=== PATIENT | male | born 1940 ===

== ENCOUNTER 2018-01-08 12:43 | Inpatient (IN) | payer OTHER, MEDICARE ==
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
[2018-01-08 13:29] LABS: BASO # 0.02 K/mm3 (0.0-2.0); BASO % 0.3 % (0.0-3.0); EOS # 0.5 (0.0-0.7); EOS % 8.9 % (1.5-5.0); GRAN # 3.17 (1.4-6.5); GRAN % 53.2 % (50.0-68.0); HEMOGLOBIN 10.3 g/dL (14.0-18.0); LYMPH # 1.9 (1.2-3.4); LYMPH % 31.7 % (22.0-35.0); MEAN CORPUSCULAR HEMOGLOBIN 32.1 pg (25.0-35.0); MEAN CORPUSCULAR HGB CONC 33.4 g/dl (31.0-37.0); MEAN PLATELET VOLUME 9.4 fl (7.0-11.0); MONO # 0.4 (0.1-0.6); MONO % 5.9 % (1.0-6.0); RBC 3.21 10^6/uL (3.5-6.1); RED CELL DISTRIBUTION WIDTH 12.1 % (11.5-14.5)
[2018-01-08 13:30] VITALS: BMI 25.3
[2018-01-08 13:37] LABS: ALB/GLOB RATIO 1.5 (1.1-1.8); ALBUMIN 4.1 g/dL (3.0-4.8); ALT/SGPT 24 U/L (7-56); AST/SGOT 29 U/L (17-59); BLOOD UREA NITROGEN 56 mg/dL (7-21); CALCIUM 9.3 mg/dL (8.4-10.5); GFR AFRICAN-AMERICAN 20; GFR NON-AFRICAN AMERICAN 16; HDL CHOLESTEROL 32 mg/dL (29-60); INR 1.12 (0.93-1.08); PARTIAL THROMBOPLASTIN TIME 31.9 Seconds (25.1-36.5); PROTHROMBIN TIME 12.9 SECONDS (9.4-12.5)
--- NOTE | 2018-01-08 13:41 | CT ---
PROCEDURE: CT HEAD WITHOUT CONTRAST. HISTORY: Code Stroke COMPARISON: None available. TECHNIQUE: Axial computed tomography images were obtained through the head/brain without intravenous contrast. Radiation dose: Total exam DLP = 958 mGy-cm. This CT exam was performed using one or more of the following dose reduction techniques: Automated exposure control, adjustment of the mA and/or kV according to patient size, and/or use of iterative reconstruction technique. FINDINGS: HEMORRHAGE: No intracranial hemorrhage. BRAIN: No mass effect or edema. Chronic microvascular changes are seen in the periventricular white matter. There is mild atrophy. VENTRICLES: Unremarkable. No hydrocephalus. CALVARIUM: Unremarkable. PARANASAL SINUSES: Unremarkable as visualized. No significant inflammatory changes. MASTOID AIR CELLS: Unremarkable as visualized. No inflammatory changes. OTHER FINDINGS: None. IMPRESSION: No acute intracranial findings
[2018-01-08 13:48] LABS: LDL CHOLESTEROL 42 mg/dL (0-129)
[2018-01-08] MEDS: Sodium Chloride 0.9% 1,000 ML IV SCH ×3 (13:52→23:30)
--- NOTE | 2018-01-08 13:55 | RAD ---
HISTORY: Code Stroke COMPARISON: No prior. FINDINGS: LUNGS: No active pulmonary disease. PLEURA: No significant pleural effusion identified, no pneumothorax apparent. CARDIOVASCULAR: Normal. OSSEOUS STRUCTURES: Sternal wires VISUALIZED UPPER ABDOMEN: Normal. OTHER FINDINGS: None. IMPRESSION: No active disease.
[2018-01-08 14:09] LABS: TROPONIN I < 0.01 ng/mL
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
[2018-01-08 15:40] LABS: ARTERIAL BLOOD GAS HEMOGLOBIN 9.4 g/dL (11.7-17.4); ARTERIAL BLOOD GAS O2 CAPACITY 12.9 mL/dl (16-24); ARTERIAL BLOOD GAS O2 CONTENT 12.8 ML/dl (15-23); ARTERIAL BLOOD GAS O2 SAT 99.2 % (95-98); ARTERIAL BLOOD GAS PCO2 46 mm/Hg (35-45); ARTERIAL BLOOD GAS PH 7.36 (7.35-7.45); ARTERIAL BLOOD GAS TCO2 27.4 mmol.L (22-28)
[2018-01-08 16:53] LABS: BARBITURATES, UR NEGATIVE (NEGATIVE); BENZODIAZEPINES, UR POSITIVE (NEGATIVE); OPIATES, UR NEGATIVE (NEGATIVE); PHENCYCLIDINE, UR NEGATIVE (NEGATIVE)
--- NOTE | 2018-01-08 18:48 | CARD ---
APPROVED REPORT EKG Measurement Heart [id number] <Conclusion> Sinus bradycardia Left axis deviation Right bundle branch block Abnormal ECG
[2018-01-08 19:51] LABS: TROPONIN I < 0.01 ng/mL
[2018-01-08 19:56] LABS: B-TYPE NATRIURETIC PEPTIDE 317 pg/mL (0-450)
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
[2018-01-08 20:24] LABS: CK-MB 1.7 ng/mL (0.0-3.6)
[2018-01-08] MEDS ORDERED: Iohexol 240 (50 ml) ONE (20:25)
[2018-01-08 20:28] LABS: IRON 106 ug/dL (45-180)
[2018-01-08 20:37] LABS: % IRON SATURATION 34 % (20-55); TOTAL IRON BINDING CAPACITY 312 ug/dL (261-462)
[2018-01-08 20:48] LABS: FREE T4 1.45 ng/dL (0.78-2.19)
[2018-01-08 21:07] LABS: PH,URINE 6.5 (4.7-8.0); URINE BILIRUBIN NEGATIVE (NEGATIVE); URINE BLOOD TRACE-INTACT (NEGATIVE); URINE GLUCOSE (UA) 100 mg/dL (NEGATIVE); URINE LEUKOCYTE ESTERASE NEGATIVE Leu/uL (NEGATIVE); URINE PROTEIN TRACE mg/dL (<30 mg/dL); URINE UROBILINOGEN 0.2 E.U./dL (<1 E.U./dL)
[2018-01-08 21:14] LABS: URINE APPEARANCE CLEAR (CLEAR); URINE COLOR YELLOW (YELLOW)
[2018-01-08 21:21] LABS: URINE EPITHELIAL CELLS 0 - 2 /hpf (0-5); URINE HYALINE CAST 0 - 2 /hpf; URINE WBC 0 - 2 /hpf (0-6)
[2018-01-08] MEDS: Insulin Reg-LOW-Coverage SC SCH (21:39)
--- NOTE | 2018-01-08 22:24 | US ---
EXAM: US Retroperitoneal Limited, Renal EXAM DATE/TIME: 01/08/2018 7:53 PM CLINICAL HISTORY: 77 years old, male; Abnormal findings; Abnormal lab test; Abnormal kidney function lab tests; Additional info: Kehinde TECHNIQUE: Real-time ultrasound of the retroperitoneum (limited) with image documentation. COMPARISON: There are no prior studies for comparison. FINDINGS: Right kidney: Right kidney measures approximately 8.6 x 4.4 cm. there is a 1.3 x 1 cm right renal cyst there is a 2.7 x 2.6 cm cyst. There is increase in cortical echogenicity. Corticomedullary differentiation is visualized. There is no pelvocaliectasis. Left kidney: Left kidney measures approximately 9 x 5.7 centimeters. There is a 1.6 x 1.1 cm left renal cyst. There is increased cortical echogenicity. Corticomedullary differentiation is visualized. There is no pelvocaliectasis. IMPRESSION: Increased cortical echogenicity suggests medical renal disease; mild atrophy, no hydronephrosis
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
[2018-01-09] MEDS: Sodium Chloride 0.9% 1,000 ML IV SCH (05:43)
[2018-01-09] MEDS: Insulin Reg-LOW-Coverage SC SCH ×4 (07:30→21:47)
[2018-01-09 07:40] LABS: ALB/GLOB RATIO 1.4 (1.1-1.8); ALBUMIN 3.9 g/dL (3.0-4.8); CALCIUM 9.2 mg/dL (8.4-10.5)
[2018-01-09 08:00] LABS: BASO # 0.03 K/mm3 (0.0-2.0); BASO % 0.5 % (0.0-3.0); EOS # 0.6 (0.0-0.7); GRAN # 3.24 (1.4-6.5); GRAN % 56.7 % (50.0-68.0); HEMOGLOBIN 10.9 g/dL (14.0-18.0); LYMPH # 1.4 (1.2-3.4); MEAN CELL VOLUME 95.6 fl (80.0-105.0); MEAN CORPUSCULAR HGB CONC 33.4 g/dl (31.0-37.0); MEAN PLATELET VOLUME 10.4 fl (7.0-11.0); MONO # 0.5 (0.1-0.6); MONO % 8.8 % (1.0-6.0); RBC 3.41 10^6/uL (3.5-6.1); RED CELL DISTRIBUTION WIDTH 12.1 % (11.5-14.5); WHITE BLOOD COUNT 5.7 10^3/ul (4.5-11.0)
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
--- NOTE | 2018-01-09 09:47 | MRI ---
PROCEDURE: MRI BRAIN WITHOUT CONTRAST HISTORY: ??CVA COMPARISON: None. TECHNIQUE: Multiplanar, multisequence MR images of the brain were obtained without intravenous contrast enhancement. FINDINGS: HEMORRHAGE: None DWI: No evidence of an acute or early subacute infarction. BRAIN PARENCHYMA: No mass effect or edema. Severe chronic microvascular changes are seen in the periventricular white matter. VENTRICLES: Unremarkable. No hydrocephalus. CRANIUM: Unremarkable. ORBITS: Grossly unremarkable. PARANASAL SINUSES/MASTOIDS: Clear VASCULAR SYSTEM: Skull base flow voids intact. OTHER FINDINGS: None. IMPRESSION: Severe chronic microvascular changes in the periventricular white matter. No acute intracranial findings
--- NOTE | 2018-01-09 09:53 | MRI ---
PROCEDURE: Magnetic Resonance Angiography Brain HISTORY: ??CVA COMPARISON: None available. TECHNIQUE: 3D time of flight MR angiography of the intracranial arteries was performed. Rotating maximum intensity projection images were generated. FINDINGS: INTERNAL CAROTID ARTERIES: There is diminished flow in the left internal carotid and middle cerebral artery. There is no associated infarct on the MRI images. There is probably collateral retrograde flow there is an irregular stenosis of the supraclinoid carotid. ANTERIOR CEREBRAL ARTERIES: Unremarkable. A1 and A2 segments are widely patent. Smaller distal branches unremarkable, as visualized. MIDDLE CEREBRAL ARTERIES: See above POSTERIOR CIRCULATION: Basilar Artery: Unremarkable. Distal Vertebral Arteries: Unremarkable. Posterior Cerebral Arteries: Unremarkable. Posterior Inferior Cerebellar Arteries: Unremarkable. ANEURYSM/ VASCULAR MALFORMATIONS: None. OTHER FINDINGS: None. IMPRESSION: Diminished antegrade flow in the left internal carotid and middle cerebral arteries. There is no associated infarct. There is probably retrograde collateral flow
--- NOTE | 2018-01-09 10:32 | CT ---
PROCEDURE: CT Abdomen and Pelvis without intravenous contrast HISTORY: DEEPAK COMPARISON: None. TECHNIQUE: Without contrast. Contrast Dose: Radiation dose: Total exam DLP = Total exam DLP = 440 mGy-cm. This CT exam was performed using one or more of the following dose reduction techniques: Automated exposure control, adjustment of the mA and/or kV according to patient size, and/or use of iterative reconstruction technique. FINDINGS: LOWER THORAX: Unremarkable. LIVER: Small 5 mm nodules are seen in both lower lobes. GALLBLADDER AND BILE DUCTS: Stones and sludge can be seen layered in the gallbladder fundus PANCREAS: Unremarkable. No gross lesion or ductal dilatation. SPLEEN: Unremarkable. ADRENALS: Unremarkable. No mass. KIDNEYS AND URETERS: Unremarkable. No hydronephrosis. No solid mass. VASCULATURE: Extensive calcification of the aorta is seen. BOWEL: Unremarkable. No obstruction. No gross mural thickening. APPENDIX: Unremarkable. Normal appendix. PERITONEUM: Unremarkable. No free fluid. No free air. LYMPH NODES: Unremarkable. No enlarged lymph nodes. BLADDER: Unremarkable. REPRODUCTIVE: Unremarkable. BONES: No acute fracture. OTHER FINDINGS: None. IMPRESSION: Gallstones and sludge. No evidence of cholecystitis. No acute intra-abdominal findings
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
[2018-01-09] MEDS: Levothyroxine 50 MCG TAB PO SCH (11:10)
[2018-01-09] MEDS: Insulin Detemir 100 units/ml Vial (Levemir) SC SCH ×2 (11:10→21:47)
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
[2018-01-09 12:10] LABS: FERRITIN 59.7 ng/mL
[2018-01-09 12:41] LABS: FOLATE 17.6 ng/mL
--- NOTE | 2018-01-09 13:04 | PN ---
DATE: 01/09/2018 FOLLOWUP SUBJECTIVE: The patient denies any dizziness. The lowest heart rate recorded was 39 beats per minute last night. PHYSICAL EXAMINATION: VITAL SIGNS: Blood pressure 156/80, heart rate 71, temperature 97.8, respirations 20. HEENT: Normocephalic. CHEST: Clear. HEART: S1 and S2 regular. ABDOMEN: Soft. EXTREMITIES: No edema. Today's EKG reveals sinus rhythm at rate of 62, right bundle-branch block with left axis deviation. Brain MRI without contrast: Severe chronic microvascular changes in the periventricular white matter. No acute findings. MRA of the head without contrast and diminished antegrade flow in the left internal carotid and middle cerebral arteries. There is no associated infarct. There is probably a retrograde collateral flow. Carotid Doppler was done, the report is still pending. ASSESSMENT: 1. Status post bioprosthetic valve replacement. 2. Dizziness and near syncope. 3. Mild sinus bradycardia. 4. Right bundle-branch block. 5. Mild anemia. 6. Chronic renal insufficiency. RECOMMENDATIONS: Continue current hydralazine, Eliquis. Prophylaxis, subcutaneous Lovenox and Synthroid at 50 mcg daily. The patient's TSH level as well as T4 and free T4 levels are within normal limit. Awaiting the echocardiography study. Chip Hou MD
--- NOTE | 2018-01-09 13:25 | CARD ---
APPROVED REPORT EXAM: Two-dimensional and M-mode echocardiogram with Doppler and color Doppler. INDICATION 2D DIMENSIONS Left Atrium (2D)5.0 (1.6-4.0cm)IVSd1.1 (0.7-1.1cm) LVDd4.5 (3.9-5.9cm)LVOT Diameter1.9 (1.8-2.4cm) PWd1.1 (0.7-1.1cm)LVDs3.2 (2.5-4.0cm) FS (%) 30.0 %LVEF (%)57.4 (>50%) M-Mode DIMENSIONS Aortic Root3.80 (2.2-3.7cm)Aortic Cusp Exc.1.70 (1.5-2.0cm) Aortic Valve AoV Peak Lklivhxk497.0cm/sAoV VTI73.3cmAO Peak GR.29mmHg LVOT Peak Xfggjdem87.2cm/sLVOT VTI25.40cmAO Mean GR.15mmHg ANNA MARIE (VMAX)1.88eg8QOK (VTI)0.56es9TO P 1/2 Fzyf6028wn Mitral Valve MV E Ntcczylv95.1cm/sMV A Yloebgsr31.9cm/sE/A ratio0.8 TDI Lateral E' Peak V7.80cm/sMedial E' Peak V6.02cm/sE/Lateral E'9.2 E/Medial E'12.0 Tricuspid Valve TR Peak Biydadgh164dd/sRAP XGPSYSQA01edTcFE Peak Gr.29mmHg [id number] LEFT VENTRICLE The left ventricle is normal size. There is normal left ventricular wall thickness. The left ventricular function is normal. The left ventricular ejection fraction is within the normal range. There is normal LV segmental wall motion. Transmitral Doppler flow pattern is Grade I-abnormal relaxation pattern. RIGHT VENTRICLE The right ventricle is normal size. There is normal right ventricular wall thickness. The right ventricular systolic function is normal. ATRIA The left atrium is mildly dilated. The right atrium size is normal. AORTIC VALVE The aortic valve is not well visualized.? Biorosthetic There is mild aortic regurgitation. There is mild valvular aortic stenosis. MITRAL VALVE The mitral valve is normal in structure. There is no mitral valve regurgitation noted. There is no mitral valve stenosis. TRICUSPID VALVE There is mild pulmonary hypertension. <Conclusion> The left ventricle is normal size. There is normal left ventricular wall thickness. The left ventricular function is normal. The left ventricular ejection fraction is within the normal range. There is normal LV segmental wall motion. Transmitral Doppler flow pattern is Grade I-abnormal relaxation pattern. The aortic valve is not well visualized.? Biorosthetic There is mild aortic regurgitation. There is mild valvular aortic stenosis. There is mild pulmonary hypertension.
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
--- NOTE | 2018-01-09 17:53 | CARD ---
APPROVED REPORT EKG Measurement Heart [id number] <Conclusion> Normal sinus rhythm Left axis deviation Right bundle branch block Abnormal ECG
[2018-01-10] MEDS: Pantoprazole 40 mg EC Tab PO SCH (05:45)
--- NOTE | 2018-01-10 07:30 | CP.PCM.PN ---
Subjective - Date & Time of Evaluation Date of Evaluation: 01/10/18 Time of Evaluation: 07:27 - Subjective Subjective: Mr. Baum was seen and examined at the bedside. He is alert, oriented in all spheres. He denies any headache, dizziness, lightheadedness, weakness. He is able to follow all commands. There was no untoward events overnight. Objective - Vital Signs/Intake and Output Vital Signs (last 24 hours): Temp Pulse Resp BP Pulse Ox 98.2 F 76 20 178/88 H 96 01/10/18 06:00 01/10/18 06:03 01/10/18 06:00 01/10/18 06:03 01/10/18 06:00 Intake and Output: 01/10/18 01/10/18 06:59 18:59 Intake Total 480 Balance 480 - Medications Medications: Current Medications Apixaban (Eliquis) 2.5 mg PO DAILY [facility] PRN Reason: Protocol Last Admin: 01/09/18 11:09 Dose: 2.5 mg Atropine Sulfate (Atropine) 0.5 mg IVP Q5M PRN PRN Reason: Other Docusate Sodium (Colace) 100 mg PO TID [facility] Last Admin: 01/09/18 17:36 Dose: 100 mg Ferrous Gluconate (Fergon) 324 mg PO TID [facility] Last Admin: 01/09/18 17:35 Dose: 324 mg Gabapentin (Neurontin) 300 mg PO DAILY [facility] PRN Reason: Protocol Last Admin: 01/09/18 11:09 Dose: 300 mg Heparin Sodium (Porcine) (Heparin) 5,000 units SC Q8 [facility] PRN Reason: Protocol Last Admin: 01/10/18 05:44 Dose: 5,000 units Hydralazine HCl (Apresoline) 10 mg IVP Q6 PRN PRN Reason: Systolic Blood Pressure Last Admin: 01/10/18 06:03 Dose: 10 mg Insulin Detemir (Levemir) 2 unit SC QAM [facility] Last Admin: 01/09/18 11:10 Dose: 2 unit Insulin Detemir (Levemir) 3 unit SC HS [facility] Last Admin: 01/09/18 21:47 Dose: 3 unit Insulin Human Regular (Humulin R Low) 0 units SC ACHS [facility] PRN Reason: Protocol Last Admin: 01/09/18 21:47 Dose: Not Given Levothyroxine Sodium (Synthroid) 50 mcg PO DAILY [facility] Last Admin: 01/09/18 11:10 Dose: 50 mcg Pantoprazole Sodium (Protonix Ec Tab) 40 mg PO 0600 [facility] Last Admin: 01/10/18 05:45 Dose: 40 mg Valproate Sodium (Depakene Cap) 500 mg PO BID [facility] Vitamin B Complex/Vit C/Folic Acid (Nephro-Kain) 1 tab PO 0800 [facility] - Labs Labs: 01/09/18 06:30 01/09/18 06:30 PT 12.9 SECONDS (9.4-12.5) H 01/08/18 13:23 INR 1.12 (0.93-1.08) H 01/08/18 13:23 APTT 31.9 Seconds (25.1-36.5) 01/08/18 13:23 - Constitutional Appears: No Acute Distress - Head Exam Head Exam: NORMAL INSPECTION - Neurological Exam Neurological Exam: Alert, Awake, Oriented x3 Neuro motor strength exam: Left Upper Extremity: 5, Right Upper Extremity: 5, Left Lower Extremity: 5, Right Lower Extremity: 5 Additional comments: Alert, oriented, follows all commands. Sensation is intact. Assessment and Plan (1) Seizure Assessment & Plan: Case discussed with Dr. Esparza, continue all current medical regimen. Recommend monitoring valproic level and pending EEG in am. Recommend case management to report to [facility] regarding patient condition ( seizure). Status: Acute
[2018-01-10 08:06] LABS: BASO # 0.02 K/mm3 (0.0-2.0); BASO % 0.3 % (0.0-3.0); EOS # 0.6 (0.0-0.7); EOS % 9.3 % (1.5-5.0); GRAN # 3.81 (1.4-6.5); HEMOGLOBIN 10.5 g/dL (14.0-18.0); LYMPH # 1.8 (1.2-3.4); LYMPH % 26.4 % (22.0-35.0); MEAN CELL VOLUME 94.2 fl (80.0-105.0); MEAN CORPUSCULAR HEMOGLOBIN 32.1 pg (25.0-35.0); MEAN CORPUSCULAR HGB CONC 34.1 g/dl (31.0-37.0); MEAN PLATELET VOLUME 10.8 fl (7.0-11.0); MONO # 0.5 (0.1-0.6); RBC 3.27 10^6/uL (3.5-6.1); RED CELL DISTRIBUTION WIDTH 11.9 % (11.5-14.5); WHITE BLOOD COUNT 6.8 10^3/ul (4.5-11.0)
[2018-01-10 08:20] LABS: ALB/GLOB RATIO 1.4 (1.1-1.8); ALBUMIN 3.5 g/dL (3.0-4.8); CALCIUM 9.1 mg/dL (8.4-10.5)
[2018-01-10] MEDS: Insulin Reg-LOW-Coverage SC SCH ×4 (08:46→21:56)
[2018-01-10] MEDS: Multivitamin Vitamin B Complex (Nephro-Vite) Tab PO SCH (08:48)
[2018-01-10] MEDS: Levothyroxine 50 MCG TAB PO SCH (10:33)
[2018-01-10] MEDS: Insulin Detemir 100 units/ml Vial (Levemir) SC SCH ×2 (10:34→21:53)
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
--- NOTE | 2018-01-10 12:49 | PN ---
DATE: 01/10/2018 SUBJECTIVE: The patient is in room 261, bed 1. The patient's overnight nurse's notes were reviewed. No adverse events were documented. The patient denies any syncope. Denies any loss of consciousness. Denies any nausea, vomiting, diarrhea, constipation. Denies hemoptysis, hematemesis, melena. PHYSICAL EXAMINATION: VITAL SIGNS: T-max afebrile. Telemetry shows sinus rhythm, sinus bradycardia. Blood pressure is elevated periodically with the blood pressure in the last 24 hours systolic reaching up to 170, 174, diastolic in the high 80s and 90s. The patient's IV fluid was discontinued by the imager. The patient is seen. HEENT: Head examination normocephalic, atraumatic. HEENT examination shows pinkish pale conjunctivae. Anicteric sclerae. No oropharyngeal lesion. No neck rigidity. CHEST: Shows median sternotomy surgical scar. LUNGS: Shows no rales, crackles or wheezing. CARDIOVASCULAR: S1, S2. Regular rhythm. Positive systolic murmur, left sternal border, right second intercostal space, left second intercostal space. ABDOMEN: Soft. Positive bowel sound. No hepatosplenomegaly noted. No guarding. No rigidity. No rebound tenderness. GENITALIA: Male. RECTAL: Deferred. EXTREMITY: Shows no pitting edema, no calf tenderness, no Paulina's signs. NEUROLOGIC: The patient is alert, awake, oriented x3. Cranial nerves II through XII intact. Gait examination not tested. VASCULAR: Palpable pulses. Motor strength is 5/5 in the lower extremity. DIAGNOSTICS:: From 01/10/2018, CBC still shows hemoglobin and hematocrit around 10 and 30, 31. Manual platelets are within normal limit. Chemistry, CMP, LFT shows elevated BUN and creatinine with a CKD 3 or 4. The patient had a CAT scan of the abdomen and pelvis done, which was reviewed. The patient had an MRI, MRA of the brain done, which was reviewed. Echo with Doppler was reviewed. Results reviewed, which are available in the [facility] system. IMPRESSION AND PLAN: 1. Status post altered mental status. 2. Dizziness. 3. Possible symptomatic bradycardia. 4. Uncontrolled hypertension. 5. Urine drug screen positive for benzodiazepine. 6. History of questionable coronary artery bypass graft versus valvular replacement. 7. Pulmonary hypertension. 8. Hypertensive cardiovascular disease. 9. Pulmonary hypertension with elevated right ventricular systolic pressure. 10. Anemia and anemia of chronic kidney disease. 11. Chronic kidney disease stage 4. 12. Severe chronic microvascular ischemic disease of the brain on the MRI. 13. Cholelithiasis with gallbladder sludge. 14. Sinus bradycardia. 15. Right bundle-branch block. 16. Left axis deviation. 17. History of insulin-requiring diabetes mellitus. 18. Diabetic neuropathy. 19. Gait dysfunction. 20. Deconditioning. 21. Hypertension. Plan at this time, the patient is seen by imager, spectrographer, neurologist, Dr. Esparza. The patient is started on Depakote by Neurology. The patient's IV fluid was discontinued by Nephrology. Gastroenterology recommendations are no further intervention. Plan at this time, the patient has been ordered serial labs. The patient will be considered for discontinue telemetry once the patient's bradycardia is completely resolved and blood pressure has stabilized. The was started on hydralazine 10 mg twice a day for blood pressure optimization plus p.r.n., hydralazine IV every 6 p.r.n. The patient was started on Depakote. The patient's IV fluid discontinued. The patient will be continued on all the medications as per the MAR. The patient will be considered for either TCU evaluation if accepted. The patient will be considered for transfer to TCU if accepted, otherwise the patient will be considered for discharge home after completion of all diagnostic therapeutic intervention and after cleared by Neurology, Cardiology and Nephrology, which has been explained to the patient and the patient's daughter and the at length at the time of admission. All questions concerned answered. Dictated and electronically signed, not read. Arnav Garcia MD
--- NOTE | 2018-01-10 16:48 | US ---
HISTORY: CHOLELITHIASIS COMPARISON: None. TECHNIQUE: Sonographic evaluation of the abdomen. FINDINGS: LIVER: Measures 13.15 x 10.69 cm. Normal echogenicity of the liver parenchyma. No mass. No intrahepatic bile duct dilatation. GALLBLADDER: Gallstones. No evidence of cholecystitis COMMON BILE DUCT: Measures 4 mm. No stones. No dilatation. PANCREAS: Not well visualized due to bowel gas RIGHT KIDNEY: Measures 9.17 x 4.25 x 5.01cm. Increased echogenicity. Small simple cysts LEFT KIDNEY: Measures 10.11 x 5.08 x 5.32cm. Increased echogenicity. Small simple cyst SPLEEN: Normal in size and contour. No mass. AORTA: No aneurysmal dilatation. IVC: Unremarkable. OTHER FINDINGS: None. IMPRESSION: Gallstones. No evidence of cholecystitis. Echogenic kidneys consistent with medical renal disease
--- NOTE | 2018-01-10 17:12 | PN ---
DATE: 01/10/2018 LOCATION: The patient in room 261, bed1. REASON FOR CONSULTATION AND FOLLOWUP: Dizziness, rule out cardiac arrhythmia. SUBJECTIVE: The patient lying flat in bed without chest pain, shortness of breath, or palpitations. He denies any dizziness at present. OBJECTIVE: VITAL SIGNS: Blood pressure 170/89, respirations 20, pulse 75, and temperature 97.7. HEENT: Head is normocephalic. Eyes: Pupils normal. Conjunctivae slightly pale. NECK: JVP low. Carotids equal. THORAX: AP diameter normal. LUNGS: Clear. CARDIOVASCULAR: S1 and S2. ABDOMEN: Soft. No tenderness. No organomegaly. Bowel sounds normal. EXTREMITIES: No clubbing. No cyanosis. LABORATORY DATA: WBC 6.8, hemoglobin 10.5, hematocrit 30.8, and platelets 133. Sodium 145, potassium 4.6. BUN 55, creatinine 3.1. Random glucose 203. MRA of the head showed diminished antegrade flow in the left internal carotid and middle cerebral arteries. MRI of the brain showed severe chronic microvascular changes in the periventricular white matter, no acute intercerebral findings seen. Brain MRI showed severe chronic microvascular changes in the periventricular white matter, no acute intracranial findings. DIAGNOSES: Status post bioprosthetic valve replacement, dizziness, near syncope, mild sinus bradycardia, right bundle-branch block, mild anemia, chronic renal insufficiency, hypertension. MEDICATIONS: The patient on hydralazine 10 mg b.i.d. started today by Dr. Garcia because of elevated blood pressure. The patient getting valproic acid 500 mg b.i.d., Eliquis 2.5 mg daily, ferrous gluconate 324 mg p.o. t.i.d., heparin 5000 units subcu every 8 hours, insulin as ordered, gabapentin 300 mg daily, amlodipine 5 mg daily, levothyroxine 50 mcg daily, and Protonix 40 daily. PLAN: We will continue the medicine and monitor blood pressure. Dr. Cerrato will follow the patient from tomorrow. Sharan Lopez MD
--- NOTE | 2018-01-10 20:19 | US ---
PROCEDURE: Bilateral carotid artery duplex ultrasound HISTORY: Carotid stenosis PHYSICIAN(S): Jay Mejia MD. TECHNIQUE: Duplex sonography and color-flow Doppler were used to evaluate the carotid bifurcations and limited segments of the vertebral arteries bilaterally. The exam is somewhat limited by tortuous vessels. FINDINGS: There is miild smooth echogenic plaque noted at the carotid bifurcations bilaterally. The peak systolic velocity in the proximal right internal carotid artery is 87 cm/sec. This corresponds to a 20 to 39% proximal right ICA stenosis. Normal systolic velocities are noted in the proximal right external carotid artery. There is antegrade flow in the right vertebral artery. The peak systolic velocity in the proximal left internal carotid artery is 65 cm/sec. This corresponds to a 20 to 39% proximal left ICA stenosis. Normal systolic velocities are noted in the proximal left external carotid artery. There is antegrade flow in the left vertebral artery. IMPRESSION: 1. Bilateral 20-39% proximal ICA stenoses. 2. Antegrade flow in both vertebral arteries.
[2018-01-11 01:35] VITALS: RESP 18
[2018-01-11] MEDS: Pantoprazole 40 mg EC Tab PO SCH (05:22)
[2018-01-11 05:59] VITALS: O2SAT 96
[2018-01-11 06:25] LABS: BASO # 0.02 K/mm3 (0.0-2.0); BASO % 0.3 % (0.0-3.0); EOS # 0.6 (0.0-0.7); EOS % 9.5 % (1.5-5.0); GRAN # 3.07 (1.4-6.5); HEMOGLOBIN 10.8 g/dL (14.0-18.0); LYMPH # 1.7 (1.2-3.4); LYMPH % 28.6 % (22.0-35.0); MEAN CELL VOLUME 94.1 fl (80.0-105.0); MEAN CORPUSCULAR HEMOGLOBIN 31.9 pg (25.0-35.0); MEAN CORPUSCULAR HGB CONC 33.9 g/dl (31.0-37.0); MEAN PLATELET VOLUME 10.4 fl (7.0-11.0); MONO # 0.5 (0.1-0.6); MONO % 8.6 % (1.0-6.0); RBC 3.39 10^6/uL (3.5-6.1); RED CELL DISTRIBUTION WIDTH 12.2 % (11.5-14.5); WHITE BLOOD COUNT 5.8 10^3/ul (4.5-11.0)
[2018-01-11 06:45] LABS: ALB/GLOB RATIO 1.3 (1.1-1.8); ALBUMIN 3.7 g/dL (3.0-4.8); CALCIUM 9.2 mg/dL (8.4-10.5)
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
[2018-01-11 08:10] LABS: 23 KD (IGG) BAND Nonreactive
[2018-01-11] MEDS: Multivitamin Vitamin B Complex (Nephro-Vite) Tab PO SCH (08:28)
[2018-01-11] MEDS: Insulin Reg-LOW-Coverage SC SCH ×2 (08:28→12:10)
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
[2018-01-11] MEDS: Levothyroxine 50 MCG TAB PO SCH (11:23)
[2018-01-11] MEDS: Insulin Detemir 100 units/ml Vial (Levemir) SC SCH (11:24)
--- NOTE | 2018-01-11 11:55 | CP.PCM.DIS ---
Provider - Provider Date of Admission: 01/08/18 15:40 Attending physician: Arnav Garcia MD Hospital Course - Lab Results Lab Results: Most Recent Lab Values WBC 5.8 10^3/ul (4.5-11.0) 01/11/18 05:30 RBC 3.39 10^6/uL (3.5-6.1) L 01/11/18 05:30 Hgb 10.8 g/dL (14.0-18.0) L 01/11/18 05:30 Hct 31.9 % (42.0-52.0) L 01/11/18 05:30 MCV 94.1 fl (80.0-105.0) 01/11/18 05:30 MCH 31.9 pg (25.0-35.0) 01/11/18 05:30 MCHC 33.9 g/dl (31.0-37.0) 01/11/18 05:30 RDW 12.2 % (11.5-14.5) 01/11/18 05:30 Plt Count 133 10^3/uL (120.0-450.0) 01/11/18 05:30 Manual Plt Count 147 K/mm3 (120-450) 01/11/18 05:30 MPV 10.4 fl (7.0-11.0) 01/11/18 05:30 Gran % 53.0 % (50.0-68.0) 01/11/18 05:30 Lymph % (Auto) 28.6 % (22.0-35.0) 01/11/18 05:30 [place] % (Auto) 8.6 % (1.0-6.0) H 01/11/18 05:30 Eos % (Auto) 9.5 % (1.5-5.0) H 01/11/18 05:30 Baso % (Auto) 0.3 % (0.0-3.0) 01/11/18 05:30 Gran # 3.07 (1.4-6.5) 01/11/18 05:30 Lymph # (Auto) 1.7 (1.2-3.4) 01/11/18 05:30 [place] # (Auto) 0.5 (0.1-0.6) 01/11/18 05:30 Eos # (Auto) 0.6 (0.0-0.7) 01/11/18 05:30 Baso # (Auto) 0.02 K/mm3 (0.0-2.0) 01/11/18 05:30 Retic Count 1.29 % (0.5-1.5) 01/08/18 20:14 PT 12.9 SECONDS (9.4-12.5) H 01/08/18 13:23 INR 1.12 (0.93-1.08) H 01/08/18 13:23 APTT 31.9 Seconds (25.1-36.5) 01/08/18 13:23 pCO2 46 mm/Hg (35-45) H 01/08/18 15:38 pO2 78.0 mm/Hg (80-100) L 01/08/18 15:38 HCO3 26.0 mmol/L (21-28) 01/08/18 15:38 ABG pH 7.36 (7.35-7.45) 01/08/18 15:38 ABG Total CO2 27.4 mmol.L (22-28) 01/08/18 15:38 ABG O2 Saturation 99.2 % (95-98) H 01/08/18 15:38 ABG O2 Content 12.8 ML/dl (15-23) L 01/08/18 15:38 ABG Base Excess 0.3 mmol/L (-2.0-3.0) 01/08/18 15:38 ABG Hemoglobin 9.4 g/dL (11.7-17.4) L 01/08/18 15:38 ABG Carboxyhemoglobin 2.2 % (0.5-1.5) H 01/08/18 15:38 POC ABG HHb (Measured) 0.8 % (0-5) 01/08/18 15:38 ABG Methemoglobin 0.7 % (0.0-3.0) 01/08/18 15:38 ABG O2 Capacity 12.9 mL/dl (16-24) L 01/08/18 15:38 Hgb O2 Saturation 96.4 % (95.0-98.0) 01/08/18 15:38 FiO2 21.0 % 01/08/18 15:38 Sodium 147 mmol/L (132-148) 01/11/18 05:30 Potassium 4.6 mmol/L (3.6-5.0) 01/11/18 05:30 Chloride 111 mmol/L (98-107) H 01/11/18 05:30 Carbon Dioxide 23 mmol/L (21-33) 01/11/18 05:30 Anion Gap 18 (10-20) 01/11/18 05:30 BUN 58 mg/dL (7-21) H 01/11/18 05:30 Creatinine 2.8 mg/dl (0.8-1.5) H 01/11/18 05:30 Est GFR ( Amer) 27 01/11/18 05:30 Est GFR (Non-Af Amer) 22 01/11/18 05:30 POC Glucose (mg/dL) 84 mg/dL (65-110) 01/11/18 07:19 Random Glucose 82 mg/dL (70-110) 01/11/18 05:30 Hemoglobin A1c 6.5 % (4.2-6.5) 01/08/18 13:23 Uric Acid 6.8 mg/dL (3.5-8.5) 01/08/18 20:58 Calcium 9.2 mg/dL (8.4-10.5) 01/11/18 05:30 Phosphorus 3.1 mg/dL (2.5-4.5) 01/11/18 05:30 Magnesium 1.9 mg/dL (1.7-2.2) 01/11/18 05:30 Iron 106 ug/dL (45-180) 01/08/18 20:14 TIBC 312 ug/dL (261-462) 01/08/18 20:14 % Saturation 34 % (20-55) 01/08/18 20:14 Ferritin 59.7 ng/mL 01/08/18 20:14 Total Bilirubin 0.5 mg/dL (0.2-1.3) 01/11/18 05:30 AST 25 U/L (17-59) 01/11/18 05:30 ALT 24 U/L (7-56) 01/11/18 05:30 Alkaline Phosphatase 47 U/L (38-126) 01/11/18 05:30 Ammonia < 9 umol/L (9-33) L 01/08/18 14:35 Total Creatine Kinase 259 U/L (35-230) H 01/08/18 19:21 CK-MB (CK-2) 1.7 ng/mL (0.0-3.6) 01/08/18 19:21 CK-MB (CK-2) % Cancelled 01/08/18 19:21 Troponin I < 0.01 ng/mL 01/09/18 00:45 NT-Pro-B Natriuret Pep 317 pg/mL (0-450) 01/08/18 19:21 Total Protein 6.4 g/dL (5.8-8.3) 01/11/18 05:30 Albumin 3.7 g/dL (3.0-4.8) 01/11/18 05:30 Globulin 2.8 gm/dL 01/11/18 05:30 Albumin/Globulin Ratio 1.3 (1.1-1.8) 01/11/18 05:30 Triglycerides 85 mg/dL (35-160) 01/08/18 13:23 Cholesterol 95 mg/dL (130-200) L 01/08/18 13:23 LDL Cholesterol Direct 42 mg/dL (0-129) 01/08/18 13:23 HDL Cholesterol 32 mg/dL (29-60) 01/08/18 13:23 Prostate Specific Ag 0.3 ng/mL (0.00-2.5) 01/08/18 20:14 Vitamin B12 710 pg/mL (239-931) 01/08/18 20:14 25-OH Vitamin D Total 39.4 NG/ML (30.0-100.0) 01/10/18 06:30 Folate 17.6 ng/mL 01/08/18 20:14 Free T4 1.45 ng/dL (0.78-2.19) 01/08/18 20:14 Thyroxine (T4) 8.0 ug/dL (5.5-11.0) 01/08/18 20:14 TSH 3rd Generation 0.96 mIU/mL (0.46-4.68) 01/08/18 14:35 Urine Color Yellow (YELLOW) 01/08/18 20:50 Urine Appearance Clear (CLEAR) 01/08/18 20:50 Urine pH 6.5 (4.7-8.0) 01/08/18 20:50 Ur Specific [place] 1.020 (1.005-1.035) 01/08/18 20:50 Urine Protein Trace mg/dL (<30 mg/dL) H 01/08/18 20:50 Urine Glucose (UA) 100 mg/dL (NEGATIVE) H 01/08/18 20:50 Urine Ketones Negative mg/dL (NEGATIVE) 01/08/18 20:50 Urine Blood Trace-intact (NEGATIVE) H 01/08/18 20:50 Urine Nitrate Negative (NEGATIVE) 01/08/18 20:50 Urine Bilirubin Negative (NEGATIVE) 01/08/18 20:50 Urine Urobilinogen 0.2 E.U./dL (<1 E.U./dL) 01/08/18 20:50 Ur Leukocyte Esterase Negative Mateusz/uL (NEGATIVE) 01/08/18 20:50 Urine RBC 1 - 3 /hpf (0-2) 01/08/18 20:50 Urine WBC 0 - 2 /hpf (0-6) 01/08/18 20:50 Ur Epithelial Cells 0 - 2 /hpf (0-5) 01/08/18 20:50 Hyaline Casts 0 - 2 /hpf 01/08/18 20:50 Digoxin < 0.4 ng/mL (0.8-2.0) L 01/08/18 14:35 Urine Opiates Screen Negative (NEGATIVE) 01/08/18 16:00 Urine Methadone Screen Negative (NEGATIVE) 01/08/18 16:00 Ur Barbiturates Screen Negative (NEGATIVE) 01/08/18 16:00 Valproic Acid 39 ug/mL (50.0-100.0) L 01/11/18 05:30 Ur Phencyclidine Scrn Negative (NEGATIVE) 01/08/18 16:00 Ur Amphetamines Screen Negative (NEGATIVE) 01/08/18 16:00 U Benzodiazepines Scrn Positive (NEGATIVE) 01/08/18 16:00 U Oth Cocaine Metabols Negative (NEGATIVE) 01/08/18 16:00 U Cannabinoids Screen Negative (NEGATIVE) 01/08/18 16:00 Alcohol, Quantitative < 10 mg/dL (0-10) 01/08/18 14:35 RPR Nonreactive (NONREACTIVE) 01/08/18 20:14 Lyme Disease Screen <0.90 index 01/08/18 20:14 Lyme IgG 18 kDa Band Nonreactive 01/08/18 20:14 Lyme IgG 23 kDa Band Nonreactive 01/08/18 20:14 Lyme IgG 28 kDa Band Nonreactive 01/08/18 20:14 Lyme IgG 30 kDa Band Nonreactive 01/08/18 20:14 Lyme IgG 39 kDa Band Nonreactive 01/08/18 20:14 Lyme IgG 41 kDa Band Nonreactive 01/08/18 20:14 Lyme IgG 45 kDa Band Nonreactive 01/08/18 20:14 Lyme IgG 58 kDa Band Nonreactive 01/08/18 20:14 Lyme IgG 66 kDa Band Nonreactive 01/08/18 20:14 Lyme IgG 93 kDa Band Nonreactive 01/08/18 20:14 Lyme IgG W Blot Interp Negative (Negative) 01/08/18 20:14 Lyme IgM 23 kDa Band Nonreactive 01/08/18 20:14 Lyme IgM 39 kDa Band Nonreactive 01/08/18 20:14 Lyme IgM 41 kDa Band Nonreactive 01/08/18 20:14 Lyme IgM W Blot Interp Negative (Negative) 01/08/18 20:14 Blood Type O POSITIVE 01/08/18 13:30 Blood Type Confirm O POSITIVE 01/08/18 14:30 Antibody Screen Negative 01/08/18 13:30 BBK History Checked No verified bt 01/08/18 13:30 Discharge Exam - Head Exam Head Exam: NORMAL INSPECTION Discharge Plan - Discharge Medications Prescriptions: amLODIPine [Norvasc] 5 mg PO DAILY #30 tab Ferrous Gluconate [Fergon] 324 mg PO TID #90 tab hydrALAZINE [Apresoline] 25 mg PO BID #60 tab Insulin Glargine,Hum.rec.anlog [Lantus Solostar] 10 unit SQ DAILY #10 insuln.pen Valproic Acid Cap [Depakene Cap] 750 mg PO BID #30 sgl Vitamin B Complex/Vit C/Folic [Nephro-Kain] 1 tab PO 0800 #30 tab - Follow Up Plan Condition: SERIOUS Disposition: HOME/ ROUTINE Instructions: Syncope (ED) Additional Instructions: MAY DISCHARGE TO TCU IF ACCEPTED OTHER MAY DISCHARGE HOME, May discharge after clearance from neurology REFER TO [facility] UPON DISCHARGE DISCHARGE MEDS PER UPDATED AMBULATORY ORDERS AND NEW SCRIPTS NO NO NO DRIVING Follow up with manufacturing operations manager outpatient for eliquis NEUROLOGY FOLLOW UP WITH 1 WEEK NEPHROLOGY FOLLOW UP WITHIN 1 WEEK NO ALCOHOL COPY OF DIET TO PATIENT AND FAMILY UPON DISCHARGE . FOLLOW UP WITHIN [address]MARY ZARATE WITHIN 1 WEEK FOLLOW UP NEPHROLOGY DR.SANFORD NEYMAR MD WITHIN 1 WEEK Referrals: Angelica Zarate MD [Staff Provider] - Dakota Maciel MD [Medical Doctor] - Arnav Garcia MD [Staff Provider] - 1 Week (MAY DISCHARGE TO TCU IF ACCEPTED OTHER MAY DISCHARGE HOME, May discharge after clearance from neurology REFER TO [facility] UPON DISCHARGE DISCHARGE MEDS PER UPDATED AMBULATORY ORDERS AND NEW SCRIPTS NO NO NO DRIVING Follow up with manufacturing operations manager outpatient for eliquis NEUROLOGY FOLLOW UP WITH 1 WEEK NEPHROLOGY FOLLOW UP WITHIN 1 WEEK NO ALCOHOL COPY OF DIET TO PATIENT AND FAMILY UPON DISCHARGE . FOLLOW UP WITHIN [address]MARY ZARATE WITHIN 1 WEEK FOLLOW UP NEPHROLOGY DR.SANFORD NEYMAR MD WITHIN 1 WEEK) Brent Esparza MD [Staff Provider] -
[2018-01-11 12:55] VITALS: BP 172/94; PULSE 77; TEMP 98
--- NOTE | 2018-01-11 13:37 | PN ---
DATE: 01/11/2018 CARDIOLOGY FOLLOWUP SUBJECTIVE: The patient is no longer dizzy, no longer bradycardic. PHYSICAL EXAMINATION: VITAL SIGNS: Blood pressure varies from 153 to 165 systolic. NECK: Negative JVD. LUNGS: Without rales. HEART: S1, S2. EXTREMITIES: Without edema. LABORATORY DATA: BUN and creatinine 58 and 2.8. Glucose is 201. Hemoglobin is 10.8. IMPRESSION: 1. Status post symptomatic bradycardia, I suspect the patient is on beta-blockers at home. This is now resolved since being observed in the hospital. 2. Status post mitral valve surgery. 3. Renal insufficiency which is chronic. He is followed by a duck farmer, Dr. Maciel and which he has been told that his kidneys are significantly damaged. 4. Diabetes mellitus. 5. Anemia. Given these findings, the patient from a cardiac perspective, the patient's telemetry will be discontinued. He can be discharged from a cardiac perspective. I have discussed with the patient and family about avoiding some of the medications which he is on at home, which is likely beta-blockers. Followup instructions have been given to the patient in detail. He will either follow up with his own it security architect or come to see me in the office. If he does come to see me in the office, he is to bring in all his medications, so that we can review. Jay Cerrato MD
--- NOTE | 2018-01-11 15:24 | DS ---
FINAL PROGRESS NOTE AND DISCHARGE SUMMARY DATE: 01/11/2018 SUBJECTIVE: The patient is seen in room 261, bed 1. Overnight nurse's notes were reviewed. The patient slept well without any adverse documentation by the nurses. Telemetry now shows sinus rhythm. Sinus bradycardia has resolved. The patient's blood pressure is slightly improved over the last 24-48 hours. Patient's 13-system review was done, which was negative. PHYSICAL EXAMINATION: VITAL SIGNS: T-max 98.5. Telemetry shows normal sinus rhythm, heart rate averaging between 64 and 83, blood pressure 153/68, 165/99, respiration 18, O2 sat 96%. HEENT: Head: Normocephalic, atraumatic. HEENT examination shows pinkish pale conjunctivae. Anicteric sclerae. No oropharyngeal lesion. No neck rigidity. Systolic carotid bruit. CHEST: Shows median sternotomy surgical scar. LUNGS: Shows no rales, crackles or wheezing. Questionable decreased breath sound at the left base. CARDIOVASCULAR: S1 and S2. Regular rhythm. Positive systolic murmur left sternal border, right second intercostal space, left second intercostal space. ABDOMEN: Soft. Positive bowel sound. No hepatosplenomegaly noted. GENITALIA: Male. RECTAL: Deferred. EXTREMITIES: Shows no pitting edema, no calf tenderness, no Homans' sign. MUSCULOSKELETAL: As per the body mass index. NEUROLOGIC: The patient is alert, awake, responsive. He is able to move upper and lower extremity without assistance. Gait examination is not tested. Motor strength is 5/5. PSYCHIATRIC: Not applicable and negative. DIAGNOSTICS: On January 11, WBC 5.8, hemoglobin and hematocrit is 10.8 and 32, platelet 133,000 and 135,000. Sodium 147, potassium 4.6, chloride 111, CO2 23, BUN 58, creatinine 2.8, glucose 82, calcium 9.2, phosphorus 3.1, magnesium 1.9, GFR is 27. LFTs are okay. Depakote level is low at 39. Ultrasound of the abdomen shows cholelithiasis, echogenic kidneys with medical renal disease. MRA of the brain shows decreased antegrade flow in the left internal carotid and middle cerebral artery with questionable retrograde collateral flow. MRI of the brain shows severe microvascular ischemic disease of the brain. Carotid Doppler shows 20-39% bilateral internal carotid artery stenosis. Renal ultrasound shows bilateral cyst, medical renal disease, renal atrophy and increased cortical echogenicity. EKG shows left axis deviation, sinus rhythm, sinus bradycardia, right bundle-branch block. Echocardiogram shows left ventricle ejection fraction of 57%. Grade 1 abnormal relaxation pattern. Questionable bioprosthetic aortic valve, mild aortic stenosis, mild aortic regurgitation, mild pulmonary hypertension. Right ventricular systolic pressure of 39. FINAL IMPRESSION AND PLAN & DISCHARGE DIAGNOSES: 1. Altered mental status, etiology undetermined. 2. Near syncope. 3. Uncontrolled hypertension. 4. Possible symptomatic bradycardia. 5. Anemia of chronic disease and chronic kidney disease. 6. Questionable acute kidney injury versus chronic kidney disease stage IV. 7. Cholelithiasis. 8. Bilateral medical renal disease with echogenic kidneys. 9. Decreased antegrade flow in the left internal carotid artery and middle cerebral artery with questionable retrograde collateral flow. 10. 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 11. A 20-39% bilateral internal carotid artery stenosis. 12. Bilateral renal cysts with bilateral renal atrophy. 13. Increased renal cortical echogenicity. 14. Sinus bradycardia. 15. Left axis deviation. 16. Right bundle-branch block. 17. Left ventricular ejection fraction of 57% with grade 1 abnormal relaxation pattern. 18. Possible bioprosthetic aortic valve. 19. Mild aortic stenosis, mild aortic regurgitation, mild pulmonary hypertension with right ventricular systolic pressure of 39 mmHg. PLAN AT THIS TIME: The patient's hydralazine is increased to 25 mg twice a day. The patient is on Norvasc 5 mg daily. The patient is started on Depakote by Neurology for unclear indication because the patient's EEG is still pending and it was reported negative by the neurologist, by Dr. Esparza, but the EEG is still not done. The patient is awaiting for an EEG to be done. The patient is once cleared by Neurology, the patient will be considered for discharge. I have met with the patient's family yesterday including the and the daughter at length. I have explained to all the patient's family and the patient about the patient's diagnostic test results, recommendation by all the physician involved in the care of the patient at length. Discussion was held in layman's language. All question and concern were answered to their satisfaction, which they acknowledged and understood. Family was advised that upon discharge, the patient needs to continue medication as per the updated and revised ambulatory orders and the new script and the patient will require close Neurological, Cardiology, Nephrology and Medicine followup as an outpatient with regular routine blood work monitoring, which they all acknowledged and understood. At this time, the patient will be continued on the medications as per the MAR of today. The patient will be considered for discharge soon as soon as the patient is cleared by Neurology and after the EEG result is available. At some point in time, the patient will require outpatient elective Cardiology followup, if the patient requires further cardiac testing, including stress test versus other diagnostic intervention. All of the above was discussed and explained to the patient, the patient's and the patient daughter, Magdalena. MAY DISCHARGE TO TCU IF ACCEPTED OTHER MAY DISCHARGE HOME, May discharge after clearance from neurology REFER TO [facility] UPON DISCHARGE DISCHARGE MEDS PER UPDATED AMBULATORY ORDERS AND NEW SCRIPTS NO NO NO DRIVING Follow up with rooming house inspector outpatient for eliquis NEUROLOGY FOLLOW UP WITH 1 WEEK NEPHROLOGY FOLLOW UP WITHIN 1 WEEK NO ALCOHOL COPY OF DIET TO PATIENT AND FAMILY UPON DISCHARGE . FOLLOW UP WITHIN [address]MARY ALMARAZ WITHIN 1 WEEK FOLLOW UP NEPHROLOGY DR.SANFORD NEYMAR MD WITHIN 1 WEEK REFER TO [facility] UPON DISCHARGE NO NO NO DRIVING Follow up with rooming house inspector outpatient for eliquis NEUROLOGY FOLLOW UP WITH 1 WEEK NO ALCOHOL COPY OF DIET TO PATIENT AND FAMILY UPON DISCHARGE . FOLLOW UP WITHIN [address]MARY ALMARAZ WITHIN 1 WEEK FOLLOW UP NEPHROLOGY DR.SANFORD NEYMAR MD WITHIN 1 WEEK Dictated and electronically signed, not read. Arnav Garcia MD MTDJuli
--- NOTE | 2018-01-11 15:46 | PN ---
DATE: 01/11/2018 SUBJECTIVE: The patient is lying in bed comfortable. He has not had any overt GI bleeding. He denies any abdominal pain, nausea, or vomiting. OBJECTIVE: VITAL SIGNS: Reveal temperature of 98.5, blood pressure 165/99, heart rate of 83. HEENT: Reveal sclerae to be white. Conjunctivae pale. NECK: Supple. CHEST: Reveals lungs to be clear. HEART: Reveals a regular rate and rhythm. ABDOMEN: Soft, nontender. EXTREMITIES: Show no edema. LABORATORY DATA: Reveals BUN 58, creatinine 2.8. AST, ALT, alk phos were all normal. CBC reveals hemoglobin 10.8, which has been stable over the last 72 hours. There was no stool for occult blood received. His reticulocyte count is normal. IMPRESSION: 1. Anemia most likely anemia of chronic disease in a patient with diabetes mellitus and chronic kidney disease. 2. Status post near syncope, most likely secondary to bradycardia. RECOMMENDATIONS: The patient is stable from a GI standpoint. No invasive GI procedures are planned at this time given his multiple comorbidities including diabetes mellitus, chronic kidney disease, and history of valvular heart disease. Janes Nielsen MD Job # [id number]
[2018-01-12 16:38] LABS: ALBUMIN (PEP) 3.7 g/dL (3.8-4.8); ALPHA-1-GLOBULIN (PEP) 0.2 g/dL (0.2-0.3)
== END 2018-01-11 15:13 | disposition home or self-care (01) | DRG 101 ==
LOC: EDSEX → ED 12:43 → ERH 15:40 → 2RNO 18:46
PROVIDERS: ADMIT Internal Medicine; ATTEND Internal Medicine
DX: R56.9 Unspecified convulsions (principal); N17.9 Acute kidney failure, unspecified; N18.4 Chronic kidney disease, stage 4 (severe); E11.649 Type 2 diabetes mellitus with hypoglycemia without coma; R00.1 Bradycardia, unspecified; E03.9 Hypothyroidism, unspecified; E11.22 Type 2 diabetes mellitus with diabetic chronic kidney disease; E11.40 Type 2 diabetes mellitus with diabetic neuropathy, unspecified; I13.10 Hypertensive heart and chronic kidney disease without heart failure, with stage 1 through stage 4 chronic kidney disease, or unspecified chronic kidney disease; I27.20 Pulmonary hypertension, unspecified; I35.2 Nonrheumatic aortic (valve) stenosis with insufficiency; I45.10 Unspecified right bundle-branch block; I65.23 Occlusion and stenosis of bilateral carotid arteries; K80.20 Calculus of gallbladder without cholecystitis without obstruction; N28.1 Cyst of kidney, acquired; I25.10 Atherosclerotic heart disease of native coronary artery without angina pectoris; D63.1 Anemia in chronic kidney disease; D69.6 Thrombocytopenia, unspecified; V43.52XA Car driver injured in collision with other type car in traffic accident, initial encounter; Y92.410 Unspecified street and highway as the place of occurrence of the external cause; Z79.4 Long term (current) use of insulin; Z86.73 Personal history of transient ischemic attack (TIA), and cerebral infarction without residual deficits; Z95.1 Presence of aortocoronary bypass graft; Z95.2 Presence of prosthetic heart valve; Z83.3 Family history of diabetes mellitus; I45.19 Other right bundle-branch block; R55 Syncope and collapse; Z68.25 Body mass index [BMI] 25.0-25.9, adult; R31.29 Other microscopic hematuria; G31.9 Degenerative disease of nervous system, unspecified